=== PATIENT | female | born 1930 | race African-American/Black ===

== ENCOUNTER 2019-01-06 23:02 | Emergency (ER) | payer MEDICARE ==
[~2019-01-06] VITALS: Ht 152.4 cm; Wt 63.0 kg
[~2019-01-06 23:02] MED LIST: AMLO10TA80 PO; CALC-456 PO; CLOP75TA4 PO; COR12 PO; EZET1TAB7 PO; LAMIS2 PO; LORA-250 PO; MELO-104 PO; MELO-105 PO; METF500T PO; OMEG1CAP2 PO; PIOG45TA5 PO; RAMI10CA19 PO; SIMV80TA2 PO; SPIR1TAB4 PO; VITA1CAP PO; ZOLP10TA2 PO
[2019-01-06] MEDS ORDERED: KETOROLAC 30MG/ML VIAL IV STA (23:41)
[2019-01-06] MEDS ORDERED: SODIUM CHLORIDE 0.9% 1,000 ML IV ONE (23:41)
[2019-01-06] MEDS ORDERED: CLINDAMYCIN 600 MG in DEXTROSE 5% WATER 50 ML IV ONE (23:45)
[2019-01-07] MEDS ORDERED: METHYLPREDNISOLONE SOD SUCC 125 MG/2 ML VIAL IV ONE
[2019-01-07 00:09] LABS: HEMATOCRIT. 34.1 % (36.0-48.0); HEMOGLOBIN. 11.4 g/dL (12.0-16.0); MEAN CORPUSCULAR VOLUME 89.8 fL (81.0-99.0); PLATELET 294 x1000/uL (130-400); RED CELL DISTRIBUTION WIDTH 13.5 % (11.6-14.6)
[2019-01-07 00:12] LABS: CHLORIDE 102 mEq/L (98-107)
[2019-01-07] MEDS ORDERED: CLINDAMYCIN 600MG PREMIX 50 ML IV SCH (00:15)
[2019-01-07 00:26] LABS: PROTHROMBIN TIME 10.6 sec (9.6-11.0)
[2019-01-07 00:55] VITALS: BP 138/54
[2019-01-07] MEDS ORDERED: IOHEXOL-300 100 ML BOTTLE ONE (00:56)
[2019-01-07 01:32] LABS: ATYPICAL LYMPHOCYTES 2; PLATELET ESTIMATE NORMAL
== END 2019-01-07 01:48 | disposition home or self-care (01) ==
LOC: ER 23:02 → CANBEDREQ 01-07 04:18
DX: K11.20 Sialoadenitis, unspecified (principal); Z79.899 Other long term (current) drug therapy
CPT/HCPCS: 36415; 70491; 71045; 80053; 83605; 84145; 84484; 85025; 85610; 87040; 93005; 96365; 96375; 99291; J1885; J2930; J3490; J7030; J7060; Q9967

== ENCOUNTER 2019-06-09 03:18 | Emergency (ER) | payer MEDICARE ==
[~2019-06-09] VITALS: Ht 154.9 cm; Wt 73.0 kg
[~2019-06-09 03:18] MED LIST changes: -RAMI10CA19 PO; +RAMI10CA68 PO
[2019-06-09] MEDS ORDERED: OXYCODONE HCL/ACETAMINOPHEN 5/325MG TABLET PO ONE (06:30)
[2019-06-09] MEDS ORDERED: IBUPROFEN 600MG TABLET PO ONE (06:30)
[2019-06-09 08:31] VITALS: BP 153/75
== END 2019-06-09 08:31 | disposition home or self-care (01) ==
LOC: ER 03:18
DX: K11.20 Sialoadenitis, unspecified (principal); I11.0 Hypertensive heart disease with heart failure; I50.9 Heart failure, unspecified; E11.9 Type 2 diabetes mellitus without complications; I25.2 Old myocardial infarction
CPT/HCPCS: 70486; 99284